=== PATIENT | female | born 1980 | race Two or more races ===

== ENCOUNTER 2023-07-09 00:19 | Inpatient (IN) | payer OTHER ==
[~2023-07-09] VITALS: Ht 170.2 cm; Wt 93.0 kg
[2023-07-09] MEDS ORDERED: ONDANSETRON HCL 4 MG/2 ML VIAL IM ONE (01:00)
[2023-07-09] MEDS ORDERED: HYDROmorphone HCL 2 MG/ML VL/or syr IM ONE (01:00)
[2023-07-09 01:35] LABS: Basophils # (auto) 0 10 ^3/uL (0-0.2); Basophils % (auto) 0.1 % (0.0-2.0); Eosinophils # (auto) 0 10 ^3/uL (0-0.8); Eosinophils % (auto) 0.1 % (0.0-7.0); Hematocrit 42.3 % (36.0-46.0); Hemoglobin 14.2 g/dL (12.2-16.2); Lymphocytes % (auto) 7.5 % (10.0-50.0); Mean Corpuscular Hemoglobin 31.5 pg (28.0-32.0); Mean Corpuscular Hgb Conc. 33.6 g/dL (32.0-36.0); Mean Corpuscular Volume 93.6 fL (80.0-100.0); Monocytes # (auto) 0.4 10 ^3/uL (0-1.3); Monocytes % (auto) 2.9 % (0.0-12.0); Neutrophils # (auto) 12.2 10 ^3/uL (1.6-8.6); Neutrophils % (auto) 89.4 % (37.0-80.0); Nucleated Red Blood Cells % 0.1 %; Red Blood Cells 4.52 10^6/uL (4.0-5.20); Red Cell Distribution Width 13.1 % (11.8-14.3); White Blood Cell 13.6 10^3/uL (4.4-10.8)
[2023-07-09 01:52] LABS: Alanine Aminotransferase 50 U/L (7-40); Alkaline Phosphatase 91 U/L (46-116); Anion Gap 9 (5-15); Aspartate Aminotransferase 29 U/L (13-40); BUN/Creatinine Ratio 12.6 (10.0-20.0); Bilirubin, Total 0.8 mg/dL (0.2-1.0); Blood Urea Nitrogen 11 mg/dL (9-23); Calcium 10.1 mg/dL (8.7-10.4); Carbon Dioxide 25 mmol/L (20-30); Chloride 100 mmol/L (98-107); Glucose 157 mg/dL (74-106); Lipase 30 U/L (12-53); Sodium 134 mmol/L (136-145); Total Protein 8.1 g/dL (5.7-8.2)
[2023-07-09] MEDS ORDERED: SODIUM CHLORIDE 0.9% 1,000 ML IV ONE (02:00)
[2023-07-09] MEDS ORDERED: MAALOX PLUS or MAALOX 30 ML PO ONE (03:15)
[2023-07-09] MEDS ORDERED: LIDOCAINE VISCOUS 2% 15ML UD PO ONE (03:15)
[2023-07-09] MEDS ORDERED: DONNATAL 5ml ORAL Elix (BELLADONNA ALK-PHENOBARB) PO ONE (03:15)
[2023-07-09] MEDS ORDERED: ALBUTEROL SULF 2.5 MG/0.5ML(0.5%) NEB SOLN ONE (04:49)
[2023-07-09 05:30] LABS: Urine Bacteria NONE SEEN /hpf (None Seen); Urine Blood 2+ /uL (Negative); Urine Clarity HAZY (Clear); Urine Color Yellow (Yellow); Urine Mucus FEW (None Seen); Urine Protein, UAD 1+ (Negative); Urine Urobilinogen Normal (Negative); Urine WBC 6 /hpf (0 - 5)
[2023-07-09] MEDS ORDERED: fentaNYL CITRATE 100 MCG/2 ML VL IV ONE ×2 (05:30→08:00)
[2023-07-09] MEDS ORDERED: ONDANSETRON HCL 4 MG/2 ML VIAL IV ONE ×2 (05:30→08:00)
[2023-07-09 05:43] VITALS: PULSE 59; RESP 20; O2SAT 100
[2023-07-09] MEDS ORDERED: DOCUSATE SOD 100 MG CAP PO PRN (06:45)
[2023-07-09 07:29] LABS: Basophils # (auto) 0.1 10 ^3/uL (0-0.2); Basophils % (auto) 0.5 % (0.0-2.0); Eosinophils # (auto) 0 10 ^3/uL (0-0.8); Hematocrit 40.3 % (36.0-46.0); Hemoglobin 13.3 g/dL (12.2-16.2); Lymphocytes # (auto) 0.8 10 ^3/uL (0.4-5.4); Lymphocytes % (auto) 5.5 % (10.0-50.0); Mean Corpuscular Hemoglobin 30.8 pg (28.0-32.0); Mean Corpuscular Hgb Conc. 32.9 g/dL (32.0-36.0); Mean Corpuscular Volume 93.7 fL (80.0-100.0); Monocytes # (auto) 0.5 10 ^3/uL (0-1.3); Monocytes % (auto) 3.1 % (0.0-12.0); Neutrophils % (auto) 90.9 % (37.0-80.0); Red Blood Cells 4.31 10^6/uL (4.0-5.20); Red Cell Distribution Width 12.9 % (11.8-14.3); White Blood Cell 15.4 10^3/uL (4.4-10.8)
[2023-07-09 07:36] LABS: Chloride 103 mmol/L (98-107); Potassium 4.1 mmol/L (3.5-5.1); Sodium 136 mmol/L (136-145)
[2023-07-09 07:37] LABS: Anion Gap 9 (5-15); Carbon Dioxide 24 mmol/L (20-30)
[2023-07-09 07:38] LABS: Calcium 9.7 mg/dL (8.5-10.1)
[2023-07-09 07:42] LABS: Glucose 132 mg/dL (74-106); Triglycerides 102 mg/dL (< 150)
[2023-07-09 07:43] LABS: BUN/Creatinine Ratio 16.1 (10.0-20.0); Blood Urea Nitrogen 14 mg/dL (9-23); LDL Cholesterol 119 mg/dL (< 100)
[2023-07-09] MEDS: SODIUM CHLORIDE 0.9% 1,000 ML IV SCH ×2 (07:44→23:25)
[2023-07-09 07:45] LABS: Cholesterol 161 mg/dL (< 200); HDL Cholesterol 39 mg/dL (40-59)
[2023-07-09] MEDS: metroNIDAZOLE 500MG/100ML 100 ML IV SCH ×3 (07:51→23:00)
[2023-07-09 09:12] LABS: Amphetamine Screen, Urine Neg (NEGATIVE); Barbiturate Scree,Urine Neg (NEGATIVE); Benzodiazephine Screen, Urine Neg (NEGATIVE); Cannabinoid Screen, Urine Pos (NEGATIVE); Cocaine Screen, Urine Neg (NEGATIVE); Opiate Scree,Urine Neg (NEGATIVE); Phencyclidine Screen, Urine Neg (NEGATIVE)
[2023-07-09] MEDS: ACETAMINOPHEN 325 MG TAB PO PRN (17:53)
[2023-07-09] MEDS ORDERED: PANTOPRAZOLE 40 MG/10 ML VIAL INJ IV ONE (18:30)
[2023-07-09] MEDS: MAALOX PLUS or MAALOX 30 ML PO PRN (20:09)
[2023-07-09] MEDS: ONDANSETRON HCL 4 MG/2 ML VIAL IV PRN ×2 (20:17→23:06)
[2023-07-09] MEDS: LORazepam 0.5 MG TAB PO PRN (23:06)
[2023-07-09 23:15] VITALS: PULSE 63; RESP 18; O2SAT 95
[2023-07-10] VITALS (7 sets, daily range): BP systolic 123–170; BP diastolic 65–98; PULSE 60–88; RESP 15–20; TEMP 97.8–98.3; O2SAT 96–100
[2023-07-10] MEDS: ONDANSETRON HCL 4 MG/2 ML VIAL IV PRN ×4 (05:58→20:13)
[2023-07-10] MEDS: ACETAMINOPHEN 325 MG TAB PO PRN (05:59)
[2023-07-10] MEDS ORDERED: DICYCLOMINE HCL (10MG/ML) 2 ML AMPULE IM ONE (09:00)
[2023-07-10] MEDS: MORPHINE SULFATE INJ 2 MG/ml SYRG IV PRN ×3 (09:59→20:23)
[2023-07-10] MEDS ORDERED: PANTOPRAZOLE 40 MG/10 ML VIAL INJ IV SCH (10:00)
[2023-07-10 11:54] LABS: Basophils # (auto) 0 10 ^3/uL (0-0.2); Basophils % (auto) 0.2 % (0.0-2.0); Eosinophils # (auto) 0 10 ^3/uL (0-0.8); Hematocrit 34.6 % (36.0-46.0); Hemoglobin 11.7 g/dL (12.2-16.2); Lymphocytes # (auto) 1.1 10 ^3/uL (0.4-5.4); Lymphocytes % (auto) 11.1 % (10.0-50.0); Mean Corpuscular Hemoglobin 31.8 pg (28.0-32.0); Mean Corpuscular Hgb Conc. 33.8 g/dL (32.0-36.0); Mean Corpuscular Volume 94.1 fL (80.0-100.0); Monocytes # (auto) 0.4 10 ^3/uL (0-1.3); Monocytes % (auto) 3.7 % (0.0-12.0); Neutrophils # (auto) 8.5 10 ^3/uL (1.6-8.6); Red Blood Cells 3.68 10^6/uL (4.0-5.20)
[2023-07-10 11:56] LABS: Chloride 111 mmol/L (98-107); Potassium 3.1 mmol/L (3.5-5.1); Sodium 139 mmol/L (136-145)
[2023-07-10 11:57] LABS: Anion Gap 7 (5-15); Carbon Dioxide 21 mmol/L (20-30)
[2023-07-10 11:58] LABS: Calcium 7.2 mg/dL (8.5-10.1)
[2023-07-10 12:02] LABS: BUN/Creatinine Ratio 15.3 (10.0-20.0); Blood Urea Nitrogen 9 mg/dL (9-23); Glucose 82 mg/dL (74-106)
[2023-07-10] MEDS: LORazepam 0.5 MG TAB PO PRN (13:07)
[2023-07-10] MEDS: SODIUM CHLORIDE 0.9% 1,000 ML IV SCH ×2 (14:19→18:08)
[2023-07-10] MEDS: metroNIDAZOLE 500MG/100ML 100 ML IV SCH ×3 (14:21→23:00)
[2023-07-10] MEDS ORDERED: POTASSIUM CHL 20MEQ/100ML 100 ML IV SCH (15:45)
[2023-07-10] MEDS: POTASSIUM CHL 20MEQ/100ML 100 ML IV SCH ×2 (20:19→22:00)
[2023-07-10] MEDS: DICYCLOMINE HCL 10 MG CAP PO SCH (22:44)
[2023-07-11] VITALS (9 sets, daily range): BP systolic 116–161; BP diastolic 71–95; PULSE 57–65; RESP 16–21; TEMP 97.9–98.7; O2SAT 95–100
[2023-07-11] MEDS: ONDANSETRON HCL 4 MG/2 ML VIAL IV PRN ×3 (00:45→09:17)
[2023-07-11] MEDS: MORPHINE SULFATE INJ 2 MG/ml SYRG IV PRN ×2 (00:46→05:13)
[2023-07-11] MEDS: SODIUM CHLORIDE 0.9% 1,000 ML IV SCH ×2 (05:00→06:00)
[2023-07-11] MEDS: DICYCLOMINE HCL 10 MG CAP PO SCH ×4 (06:00→21:24)
[2023-07-11] MEDS: metroNIDAZOLE 500MG/100ML 100 ML IV SCH (06:55)
[2023-07-11] MEDS ORDERED: FLUMAZENIL 0.1 MG/ML INJ 10ML MDV IV ONE (08:38)
[2023-07-11] MEDS ORDERED: SODIUM CHLORIDE LOCK 10 ML ONE (08:38)
[2023-07-11] MEDS ORDERED: NALOXONE HCL 0.4 MG/ML VIAL ONE (08:38)
[2023-07-11] MEDS ORDERED: LIDOCAINE VISCOUS 2% 15ML UD ONE (08:38)
[2023-07-11] MEDS: fentaNYL CITRATE 100 MCG/2 ML VL ONE ×2 (09:34→09:37)
[2023-07-11] MEDS: MIDAZOLAM HCL 5 MG/ML-1ML VIAL ONE ×2 (09:34→09:37)
[2023-07-11] MEDS: diphenhdrAMINE HCL 50 MG/1 ML VL ONE ×2 (09:34→09:35)
[2023-07-11 10:12] LABS: Basophils # (auto) 0 10 ^3/uL (0-0.2); Basophils % (auto) 0.3 % (0.0-2.0); Eosinophils # (auto) 0 10 ^3/uL (0-0.8); Eosinophils % (auto) 0.1 % (0.0-7.0); Hemoglobin 13.2 g/dL (12.2-16.2); Lymphocytes % (auto) 11.5 % (10.0-50.0); Mean Corpuscular Hemoglobin 31.6 pg (28.0-32.0); Mean Corpuscular Hgb Conc. 33.8 g/dL (32.0-36.0); Mean Corpuscular Volume 93.4 fL (80.0-100.0); Monocytes # (auto) 0.5 10 ^3/uL (0-1.3); Monocytes % (auto) 5.2 % (0.0-12.0); Neutrophils # (auto) 7.2 10 ^3/uL (1.6-8.6); Neutrophils % (auto) 82.9 % (37.0-80.0); Red Blood Cells 4.17 10^6/uL (4.0-5.20); Red Cell Distribution Width 12.9 % (11.8-14.3); White Blood Cell 8.7 10^3/uL (4.4-10.8)
[2023-07-11 11:03] LABS: Chloride 104 mmol/L (98-107); Potassium 3.6 mmol/L (3.5-5.1); Sodium 135 mmol/L (136-145)
[2023-07-11 11:04] LABS: Anion Gap 7 (5-15); Calcium 8.8 mg/dL (8.5-10.1); Carbon Dioxide 24 mmol/L (20-30)
[2023-07-11 11:09] LABS: BUN/Creatinine Ratio 12.9 (10.0-20.0); Blood Urea Nitrogen 11 mg/dL (9-23); Glucose 89 mg/dL (74-106)
[2023-07-11] MEDS: PANTOPRAZOLE 40 MG/10 ML VIAL INJ IV SCH ×2 (11:10→21:23)
[2023-07-11] MEDS: SUCRALFATE 1 GM/10 ML ORAL SUSP PO SCH ×3 (11:30→21:24)
[2023-07-11] MEDS: MAALOX PLUS or MAALOX 30 ML PO PRN (20:26)
[2023-07-12] MEDS: SODIUM CHLORIDE 0.9% 1,000 ML IV SCH ×2 (01:00→11:00)
[2023-07-12 05:00] VITALS: BP 125/71; PULSE 54; RESP 18; TEMP 98.3; O2SAT 97
[2023-07-12 06:01] LABS: Basophils # (auto) 0 10 ^3/uL (0-0.2); Basophils % (auto) 0.4 % (0.0-2.0); Eosinophils # (auto) 0 10 ^3/uL (0-0.8); Eosinophils % (auto) 0.4 % (0.0-7.0); Hematocrit 42.4 % (36.0-46.0); Hemoglobin 14.3 g/dL (12.2-16.2); Lymphocytes # (auto) 2.8 10 ^3/uL (0.4-5.4); Lymphocytes % (auto) 32.9 % (10.0-50.0); Mean Corpuscular Hemoglobin 31.8 pg (28.0-32.0); Mean Corpuscular Hgb Conc. 33.8 g/dL (32.0-36.0); Mean Corpuscular Volume 94.1 fL (80.0-100.0); Monocytes # (auto) 0.5 10 ^3/uL (0-1.3); Monocytes % (auto) 6.2 % (0.0-12.0); Neutrophils # (auto) 5.1 10 ^3/uL (1.6-8.6); Neutrophils % (auto) 60.1 % (37.0-80.0); Nucleated Red Blood Cells % 0.1 %; Red Blood Cells 4.51 10^6/uL (4.0-5.20); White Blood Cell 8.4 10^3/uL (4.4-10.8)
[2023-07-12 06:10] LABS: Anion Gap 9 (5-15); Calcium 9.2 mg/dL (8.5-10.1); Carbon Dioxide 24 mmol/L (20-30); Chloride 103 mmol/L (98-107); Potassium 3.5 mmol/L (3.5-5.1); Sodium 136 mmol/L (136-145)
[2023-07-12 06:16] LABS: Blood Urea Nitrogen 9 mg/dL (9-23); Glucose 80 mg/dL (74-106)
[2023-07-12] MEDS: SUCRALFATE 1 GM/10 ML ORAL SUSP PO SCH ×2 (06:32→12:16)
[2023-07-12] MEDS: DICYCLOMINE HCL 10 MG CAP PO SCH ×2 (06:32→12:15)
[2023-07-12 08:00] VITALS: PULSE 68; RESP 14; O2SAT 96
[2023-07-12 09:00] VITALS: BP 115/67; PULSE 68; RESP 14; TEMP 98.4; O2SAT 96
[2023-07-12] MEDS: ACETAMINOPHEN 325 MG TAB PO PRN (09:58)
[2023-07-12] MEDS: MAALOX PLUS or MAALOX 30 ML PO PRN (09:58)
[2023-07-12] MEDS: PANTOPRAZOLE 40 MG/10 ML VIAL INJ IV SCH (09:58)
[2023-07-12] MEDS ORDERED: PANT40TA2 PO (11:10)
[2023-07-12] MEDS ORDERED: SUCR1TAB22 OR (11:10)
[2023-07-12] MEDS ORDERED: ZOFR4T PO (11:10)
[2023-07-12 13:00] VITALS: BP 115/78; PULSE 60; RESP 15; TEMP 98.3; O2SAT 99
[2023-07-12 16:06] VITALS: BP 115/78; PULSE 60; RESP 15; TEMP 98.3; O2SAT 99
== END 2023-07-12 16:30 | disposition home or self-care (01) | DRG 391 ==
LOC: ER 00:19 → OVERFLOW 06:41 → EAST 06:50
PROVIDERS: ADMIT Internal Medicine Geriatric Medicine; ATTEND Internal Medicine Geriatric Medicine
PROC: 0DB68ZX Excision of Stomach, Via Natural or Artificial Opening Endoscopic, Diagnostic (ICD-10-PCS; 2023-07-11)
PROC: 0DB48ZX Excision of Esophagogastric Junction, Via Natural or Artificial Opening Endoscopic, Diagnostic (ICD-10-PCS; 2023-07-11)
PROC: 0DB98ZX Excision of Duodenum, Via Natural or Artificial Opening Endoscopic, Diagnostic (ICD-10-PCS; principal; 2023-07-11 09:20)
DX: K29.70 Gastritis, unspecified, without bleeding (principal); N17.0 Acute kidney failure with tubular necrosis; K44.9 Diaphragmatic hernia without obstruction or gangrene; K20.90 Esophagitis, unspecified without bleeding; E86.0 Dehydration; F12.929 Cannabis use, unspecified with intoxication, unspecified; E66.9 Obesity, unspecified; Z68.32 Body mass index [BMI] 32.0-32.9, adult; E78.2 Mixed hyperlipidemia; K29.90 Gastroduodenitis, unspecified, without bleeding; K21.9 Gastro-esophageal reflux disease without esophagitis; K29.80 Duodenitis without bleeding; D64.9 Anemia, unspecified; D72.829 Elevated white blood cell count, unspecified; Z88.6 Allergy status to analgesic agent; Z97.5 Presence of (intrauterine) contraceptive device
CPT/HCPCS: 36415; 43239; 71045; 74018; 74176; 80048; 80053; 80061; 80307; 81001; 81025; 83690; 84484; 85025; 96361; 96372; 96374; 96375; 96376; C9113; G0378; J2250; J2405; J3480; J3490